=== PATIENT | male | born 1990 | race Caucasian/White ===

== ENCOUNTER 2017-10-28 05:28 | Emergency (ER) | payer OTHER ==
[~2017-10-28] VITALS: Ht 180.3 cm; Wt 74.8 kg
[2017-10-28 05:51] VITALS: BP 125/82
[2017-10-28] MEDS ORDERED: TDAP [DIPH/PERTUSSIS/TET] 0.5 ML VIAL IM ONE ×2 (06:55→07:00)
--- NOTE | 2017-10-28 07:06 | NUR ---
report given to kay pino.
--- NOTE | 2017-10-28 07:07 | NUR ---
RECEIVED REPORT FOR WILSON.
== END 2017-10-28 07:24 | disposition home or self-care (01) ==
LOC: ER 05:31
DX: S51.051A Open bite, right elbow, initial encounter (principal); Z98.890 Other specified postprocedural states; W53.11XA Bitten by rat, initial encounter; Y93.89 Activity, other specified; Y92.89 Other specified places as the place of occurrence of the external cause; Y99.8 Other external cause status
CPT/HCPCS: 90471; 90715; 99283; A4606; Z7610